=== PATIENT | male | born 2000 | race Caucasian/White ===

== ENCOUNTER 2020-01-09 16:35 | Emergency (ER) | payer OTHER ==
--- NOTE | 2020-01-09 16:46 | PDOC ---
Rapid Medical Evaluation Time Seen by Provider: 01/09/20 16:41 Medical Evaluation: 01/09/20 16:41 I have performed a brief in-person evaluation of this patient. CC: abdominal pain x2 days PE: RLQ tenderness with guarding Orders: labs, urine, CTAP Patient will proceed to ED for further evaluation. Discharge Disposition - Diagnosis Abdominal pain - Referrals Referrals: Maxim Henley MD [Primary Care Provider] - - Patient Instructions - Post Discharge Activity
[2020-01-09] MEDS ORDERED: SODIUM CHLORIDE 1,000 ML IV STA (16:47)
[2020-01-09] MEDS ORDERED: ONDANSETRON 4 MG/2 ML VIAL IVPUSH ONE (16:48)
[2020-01-09] MEDS ORDERED: morphine SULFATE 4 MG/ML VIAL IVPUSH ONE (16:48)
[2020-01-09 16:59] VITALS: BP 162/90; PULSE 80; TEMP 97.1; BMI 22.1
[2020-01-09] MEDS ORDERED: morphine SULFATE 4 MG/ML VIAL ONE (17:28)
--- NOTE | 2020-01-09 17:53 | PDOC ---
History of Present Illness - General Chief Complaint: Pain Stated Complaint: STOMACH PAIN Time Seen by Provider: 01/09/20 16:41 History Source: Patient Exam Limitations: No Limitations - History of Present Illness Travel History: No Initial Comments: 01/09/20 17:45 20-year-old male presents ED with complaints of abdominal pain since yesterday. Patient states was unable to sleep secondary to pain to the right lower quadrant which she describes a cramping sensation. Patient states vomited x1 also had diarrhea this morning. Patient denies any blood in stool or emesis. Patient denies recent travel recent illness or medical history including GI history. Patient has no urinary complaints, rash, recent injury. Timing/Duration: reports: intermittent Quality: reports: mild, cramping Pain Radiation: reports: no radiation Activities at Onset: reports: none Aggravating Factors: improves with: None Alleviating Factors: improves with: None Past History - Travel History Traveled outside of the country in the last 30 days: No Close contact w/someone who was outside of country & ill: No - Medical History Allergies/Adverse Reactions: Allergies Allergy/AdvReac Type Severity Reaction Status Date / Time No Known Allergies Allergy Verified 01/09/20 17:04 COPD: No - Psycho-Social/Smoking History Patient Lives Alone: No Lives with/in: parents Smoking History: Never smoked Have you smoked in the past 12 months: No Information on smoking cessation initiated: No - Substance Abuse Hx (Audit-C & DAST Scrn) How often the patient has a drink containing alcohol: Never Score: In Men: 4 or > Positive; In Women: 3 or > Positive: 0 Screen Result (Pos requires Nsg. Audit-10AR): Negative In the last yr the pt used illegal drug/Rx for NonMed reason: No Score: Yes response is considered Positive: 0 Screen Result (Positive result requires Nsg. DAST-10): Negative Review of Systems - Review of Systems Able to Perform ROS?: Yes Constitutional: No: Symptoms Reported HEENTM: No: Symptoms Reported Respiratory: No: Symptoms reported Cardiac (ROS): No: Symptoms Reported ABD/GI: Yes: Diarrhea, Vomiting, Abdominal cramping : No: Symptoms Reported Musculoskeletal: No: Symptoms Reported Integumentary: No: Symptoms Reported *Physical Exam - Vital Signs Last Vital Signs Temp Pulse Resp BP Pulse Ox 97.1 F L 80 17 162/90 100 01/09/20 16:46 01/09/20 16:46 01/09/20 16:46 01/09/20 16:46 01/09/20 16:46 - Physical Exam General Appearance: Yes: Nourished, Appropriately Dressed. No: Apparent Distress HEENT: positive: EOMI, Pharynx Normal. negative: Pale Conjunctivae Neck: positive: Normal Thyroid, Supple Respiratory/Chest: positive: Lungs Clear, Normal Breath Sounds. negative: Respiratory Distress, Accessory Muscle Use Cardiovascular: positive: Regular Rhythm, Regular Rate. negative: Murmur Gastrointestinal/Abdominal: positive: Normal Bowel Sounds, Soft, Tenderness (Right lower quadrant negative obturator sign negative psoas negative Rovsing. Able to jump up and down on left leg with right knee flexed without complaints). negative: Distended Musculoskeletal: negative: CVA Tenderness Integumentary: positive: Normal Color, Warm, Moist Neurologic: positive: Motor Strength 5/5 (Ambulatory) Medical Decision Making - Medical Decision Making 01/09/20 16:47 Chief complaint: Right lower quadrant pain since yesterday associate one episode of vomiting 1 episode of diarrhea. No other complaints. Exam: Patient with positive McBurney's otherwise other symptoms negative. Plan: CAT scan labs urine and fluids ordered from [facility]. 01/09/20 17:53 Patient refusing all labs CAT scan and fluids stating he wants to go home since his birthday and will sign out AMA. Patient is alert and oriented x3. Patient given precautions on symptoms to be aware of including worsening right lower quadrant pains, fever, uncontrolled vomiting, diarrhea, or weakness. Patient will be prescribed Zofran for discharge with recommendations to take Tylenol for discomfort. Discharge - Discharge Information Problems reviewed: Yes Clinical Impression/Diagnosis: Abdominal pain Condition: Unchanged/Unknown Disposition: AGAINST MEDICAL ADVICE - Follow up/Referral Referrals: Maxim Henley MD [Primary Care Provider] - - Patient Discharge Instructions Patient Printed Discharge Instructions: DI for Abdominal Pain-Adult Additional Instructions: Please understand you are signing out AGAINST MEDICAL ADVICE which you are assuming responsibility for your visit today. You may return at any given time if you have worsening abdominal pain, uncontrolled vomiting, high fever, or excessive diarrhea/weakness. In the meanwhile you may try following a bland diet taking Zofran as needed for discomfort and Tylenol for pain. - Post Discharge Activity Work/Back to School Note: Back to Work
== END 2020-01-09 18:06 | disposition left against medical advice (07) ==
LOC: JER 16:35
PROC: 3E033NZ Introduction of Analgesics, Hypnotics, Sedatives into Peripheral Vein, Percutaneous Approach (ICD-10-PCS; principal; 2020-01-09)
PROC: 3E033GC Introduction of Other Therapeutic Substance into Peripheral Vein, Percutaneous Approach (ICD-10-PCS; 2020-01-09)
PROC: 3E0337Z Introduction of Electrolytic and Water Balance Substance into Peripheral Vein, Percutaneous Approach (ICD-10-PCS; 2020-01-09)
DX: R10.9 Unspecified abdominal pain (principal)
CPT/HCPCS: 96361; 96374; 96375; 99285-25